=== PATIENT | male | born 1975 | race Caucasian/White ===

== ENCOUNTER 2017-07-15 08:31 | Inpatient (IN) | payer BC, OTHER ==
[~2017-07-15] VITALS: Ht 195.6 cm; Wt 93.0 kg
--- NOTE | 2017-07-15 22:40 | NUR ---
PRE-ADMISSION NOTE: Patient assessed in intake office at 22:40 on 07/15/2017. Patient is ambulatory with steady gate, stable, AOx4, speech is clear. Patient states that he is here, in the [facility] "first time for Safety Detox from Alcohol". Patient states that he last used Alcohol: 12 beers x 11 oz on "07/15/2017 at 1900". Patient reports that used Alcohol " every other day: 12 beer x 11 oz and /or Vodka 750 ml last two years". Patient also reports that he was 14 years sober from 2000 to 2014" . Patient's CIWA 7. The patient reported the following symptoms of withdrawal: anxiety, agitation, nervousness, diaphoresis, insomnia, restlessness, and fatigue. Patient denies SI/HI. Breathing is even and unlabored. Patient denies SOB and chest pain. Last BM was "07/15/17 at 19:00". VS: T: 98'3; BP: 135/88; HR: 80; RR: 19; O2 SAT: 100%. Patient denies pain now: "0/10". Patient reports Allergy to Bee. Patient placed on Full Code, Regular Diet, Fall and Seizures Precautions. Patient denies History of Seizures. Patient instructed on unit protocol of vitals Q4H and COWS/CIWA assessments. Patient verbalized understanding and agreement. Patient also instructed on policy regarding destruction of any controlled substances/prescriptions brought to facility, and handling of all medications. Patient verbalized understanding and agreement. Will complete admission assessment when patient is brought up to unit.
[2017-07-15 22:55] VITALS: BP 135/88
--- NOTE | 2017-07-15 22:55 | NUR ---
ADMISSION NOTE New patient is a 42-year-old male admitted to [facility] on 07/15/2017 at 2255 for medically supervised from Alcohol withdrawal. Patient reports Allergy to Bee. Patient placed on Full Code, Regular Diet, Fall and Seizures Precautions. Patient denies Seizures History. PCP: MD Shahzad. Pre-assessment completed in intake. Patient provided UDS test at this time. Patient is ambulatory with steady gate, stable, A&Ox4, speech is clear. VS upon admission: VS: T: 98'3; BP: 135/88; HR: 80; RR: 19; O2 SAT: 100%. Patient denies pain now: "0/10". Patient reports Allergy to Bee. Patient placed on Full Code, Regular Diet, Fall and Seizures Precautions. Patient denies History of Seizures. Patient is cooperative, friendly, and verbally appropriate. Patient reports the following substances use: 1."Alcohol since 1997. Sober from 2000 to 2014. Patient reports that used Alcohol " every other day: 12 beer x 11 oz and /or Vodka 750 ml last two years. Last use 12 beers x 11 oz on "07/15/2017 at 1900". 2. Tobacco smoking "2-3 cigars every day since 2000". Written smoking cessation education provided.. Patient verbalized understanding. Patient reports that longest period of sobriety was from 2000 to 2014. Patient denies current SI/HI. Past Medical History: Alcohol Abuse, Chronic tobacco use. Patient did not bring Home Medications. Upon initial assessment, patient's Respirations unlabored and even. Patient denies SOB and chest pain. Lungs Sounds are clear bilaterally. Bowel Sounds active in all x4 quadrants. Abdomen is soft and non-tender. PERRLA, brisk capillary refill, city manager equal and strong. Skin is intact, warm and dry to touch. Patient oriented to his room, Nurse Call Light, and Serenity Floor. Encourage fluids as tolerated. Encourage to attend activities groups. All needs met. Safety measures on place. Call light within reach, bed in lowest position and locked, padded rails up bilaterally rails up bilaterally. Patient admitted under the care Andrae Mac MD. Doctor Andrae Neumann MD aware for patient condition. Will continue to monitor closely.
[2017-07-15] MEDS ORDERED: ONDANSETRON ODT 4 MG TAB.RAPDIS SL PRN (23:15)
[2017-07-15] MEDS ORDERED: MIRALAX 17 GM POWD.PACK PO PRN (23:15)
[2017-07-15] MEDS ORDERED: ONDANSETRON 4 MG/2 ML VIAL IM PRN (23:15)
[2017-07-15] MEDS ORDERED: LORAZEPAM 2 MG/1 ML VIAL IM PRN (23:15)
[2017-07-15] MEDS ORDERED: DICYCLOMINE HCL 20 MG TABLET PO PRN (23:15)
[2017-07-15] MEDS ORDERED: IBUPROFEN 400 MG TABLET PO PRN (23:15)
[2017-07-15] MEDS ORDERED: LORAZEPAM 1 MG TABLET PO PRN ×2 (23:15)
[2017-07-15] MEDS ORDERED: MAG HYDROX/AL HYDROX/SIMETH 30 ML LIQUID UDC PO PRN (23:15)
[2017-07-15] MEDS ORDERED: HYDROXYZINE PAMOATE 25 MG CAPSULE PO PRN (23:15)
[2017-07-15] MEDS ORDERED: CLONIDINE HCL 0.1 MG TABLET PO PRN (23:15)
[2017-07-15] MEDS ORDERED: THIAMINE HCL 200 MG/2 ML VIAL IM ONE (23:15)
[2017-07-15] MEDS ORDERED: LOPERAMIDE HCL 2 MG CAPSULE PO PRN ×2 (23:15)
[2017-07-15] MEDS ORDERED: MAGNESIUM HYDROXIDE 30 ML LIQUID UDC PO PRN (23:15)
[2017-07-15 23:37] LABS: BASOPHILS % (AUTO) 0.5 % (0.0-2.0); EOSINOPHILS # (AUTO) 0.3 K/uL (0.0-0.7); EOSINOPHILS % (AUTO) 3.2 % (0.0-7.0); HEMOGLOBIN 16.3 G/DL (14.0-18.0); LYMPHOCYTES # (AUTO) 2.9 K/UL (0.8-4.8); LYMPHOCYTES % (AUTO) 34.1 % (20.5-51.5); MEAN CORPUSCULAR HEMOGLOBIN 29.5 UUG (27.0-31.0); MEAN CORPUSCULAR HGB CONC 33 g/dL (32.0-37.0); MEAN CORPUSCULAR VOLUME 88.5 FL (82.0-92.0); MONOCYTES # (AUTO) 0.7 K/UL (0.1-1.30); MONOCYTES % (AUTO) 8.5 % (0.0-11.0); NEUTROPHILS # (AUTO) 4.7 K/UL (1.8-8.9); NEUTROPHILS % (AUTO) 53.7 % (38.5-71.5); PLATELET COUNT (AUTO) 250 K/UL (150-450); RED BLOOD CELL COUNT(AUTO) 5.53 MIL/UL (4.7-6.1); WHITE BLOOD COUNT (AUTO) 8.6 K/UL (4.0-11.2)
[2017-07-15 23:52] LABS: BILIRUBIN,TOTAL 0.3 mg/dL (0.2-1.0); CREATININE 1.1 mg/dL (0.6-1.3); MAGNESIUM 2.2 mg/dL (1.8-2.4); TOTAL PROTEIN, SERUM 8.3 g/dL (6.4-8.2)
[2017-07-16] VITALS: BP 134/93
[2017-07-16] LABS: THYROID STIMULATING HORMONE 1.979 mIU/mL (0.358-3.740)
[2017-07-16] MEDS: ACETAMINOPHEN 325 MG TABLET PO PRN ×2 (00:34→20:53)
[2017-07-16] MEDS: diphenhydrAMINE 50 MG CAPSULE PO PRN ×2 (00:34→20:53)
--- NOTE | 2017-07-16 00:34 | NUR ---
PRN TYLENOL 650 MG 2 TAB PO ADMINISTRATION. Patient c/o generalized body aches "7/10"and asked aid. PRN Tylenol 650 mg 2 tab PO administrated full glass of water as ordered. Patient tolerated well. All needs met. Safety measures on place. Call light within reach, bed in lowest position and locked, padded rails up bilaterally rails up bilaterally. Will continue to monitor closely.
--- NOTE | 2017-07-16 00:34 | NUR ---
PRN BENADRYL 50 MG 1 CAP PO AND PRN MAALOX SUSPENSION 30 ML PO ADMINISTRATION. Patient c/o insomnia and heartburn. PRN Benadryl 50 mg 1 cap PO and PRN Maalox Suspension 30 ml PO administrated with full glass of water as ordered. Patient tolerated well. All needs met. Safety measures on place. Call light within reach, bed in lowest position and locked, padded rails up bilaterally rails up bilaterally. Will continue to monitor closely.
[2017-07-16] MEDS ORDERED: ACETAMINOPHEN 325 MG TABLET ONE (00:43)
[2017-07-16] MEDS ORDERED: MAG HYDROX/AL HYDROX/SIMETH 30 ML LIQUID UDC ONE (00:43)
[2017-07-16] MEDS ORDERED: diphenhydrAMINE 50 MG CAPSULE ONE (00:43)
[2017-07-16] MEDS ORDERED: THIAMINE HCL 200 MG/2 ML VIAL ONE (00:52)
--- NOTE | 2017-07-16 01:34 | NUR ---
RE-ASSESSMENT Patient is sleeping. Respirations even and unlabored. RR:15. PRN Benadryl PO and PRN Maalox Suspension PO were effective. All needs met. Safety measures on place. Call light within reach, bed in lowest position and locked, padded rails up bilaterally rails up bilaterally. Will continue to monitor closely.
--- NOTE | 2017-07-16 01:34 | NUR ---
RE-ASSESSMENT Patient is sleeping. Respirations even and unlabored. RR:15. PRN Tylenol PO was effective. All needs met. Safety measures on place. Call light within reach, bed in lowest position and locked, padded rails up bilaterally rails up bilaterally. Will continue to monitor closely.
[2017-07-16 04:00] VITALS: BP 120/72
[2017-07-16 04:14] LABS: *AMPHETAMINE, URINE NEGATIVE (NEGATIVE); *BARBITURATE, URINE NEGATIVE (NEGATIVE); *CANNABINOID, URINE NEGATIVE (NEGATIVE); *COCCAINE, URINE NEGATIVE (NEGATIVE); *OPIATE, URINE NEGATIVE (NEGATIVE); *PHENCYCLIDINE SCREEN,URINE NEGATIVE (NEGATIVE)
--- NOTE | 2017-07-16 06:56 | NUR ---
END OF SHIFT NOTE: Patient endorsed to day shift nurse. Report given. Patient is a 42-year-old male admitted to [facility] on 07/15/2017 at 2255 for medically supervised from Alcohol withdrawal. Patient admitted under the care doctor Andrae Neumann MD. Patient reports Allergy to Bee. Patient is Full Code, Regular Diet, is Fall and Seizures Precautions. Patients denies Seizures Hx r/t withdrawal from substances. Patient is cooperative, friendly, and verbally appropriate. Patient reports the following substances use: 1."Alcohol since 1997. Sober from 2000 to 2014. Patient reports that used " every other day: 12 beer x 11 oz and /or Vodka 750 ml last two years. Last use 12 beers x 11 oz on "07/15/2017 at 1900". 2. Tobacco smoking "2-3 cigars every day since 2000". Written smoking cessation education provided. Patient verbalized understanding. Patient reports that longest period of sobriety was from 2000 to 2014. Patient denies current SI/HI. Past Medical History: Alcohol Abuse, Chronic tobacco use. Patient did not bring Home Medications. VS at 0400: VS: T: 98'1; BP: 120/72; HR: 62; RR: 14; O2 SAT: 96%. Patient denies pain now: "0/10". Respirations unlabored and even. Patient denies SOB and chest pain. Lungs Sounds are clear bilaterally. Bowel Sounds active in all x4 quadrants. Abdomen is soft and non-tender. PERRLA, brisk capillary refill, steamfitter equal and strong. Skin is intact, warm and dry to touch. Last CIWA 3 at 0400. During my shift patient presented with anxiety, agitation, nervousness, barely sweating, and restlessness. Respirations unlabored and even. Patient denies SOB, cough, and chest pain. Patient denies SI/HI. Skin is intact, warm, and dry to touch. PRN Benadryl PO, PRN Maalox Suspension PO, and PRN Tylenol PO administrated to patient last night were effective. Patient remains compliant with medications. Patient slept 4 hours, intake 1035 ml, voided x2. Encourage fluids as tolerated. Encourage to attend activities groups. All needs met. Safety measures on place. Call light within reach, bed in lowest position and locked, padded rails up bilaterally rails up bilaterally.
--- NOTE | 2017-07-16 07:30 | NUR ---
Start of Shift Chaplain Resident received report on 42 year old male admitted on 07/15/17 for ETOH detoxification. Pt is a full code, regular diet and has an allergy to Bee Pollen. Pt denies PMH. Denies history of seizures. Pt no currently on a taper. Last CIWA 3 at 0400. PRN Tylenol and Benadryl provided by date night sitter. Pt had been sober 14 years, relapsed 2 years ago. Chaplain Resident encountered pt resting in bed with eyes closed. Respirations are even and unlabored with rise and fall of chest noted. Bed in low position, wheels locked, side rails up x2 and call light within reach.
[2017-07-16 08:50] VITALS: BP 134/87
[2017-07-16] MEDS ORDERED: TUBERCULIN,PURIF.PROT.DERIV. 5 TU/0.1 ML TEST ID ONE (09:00)
[2017-07-16] MEDS: THIAMINE HCL 100 MG TABLET PO SCH (09:47)
[2017-07-16] MEDS: FOLIC ACID 1 MG TABLET PO SCH (09:47)
[2017-07-16] MEDS: MULTIVITAMINS,THERAPEUTIC TABLET PO SCH (09:47)
--- NOTE | 2017-07-16 09:47 | NUR ---
PRN Ativan Pt complain of mild detox symptoms to include, slight tremors, nausea, headache and general malaise. Direct Mail Marketer administered medication per MD order. Will continue to monitor, support and encourage according to plan of care.
--- NOTE | 2017-07-16 10:47 | NUR ---
PRN Re-assessment Pt is endorsing some relief in symptoms. Will continue to monitor, support and encourage according to plan of care.
[2017-07-16 12:30] VITALS: BP 130/84
[2017-07-16] MEDS: LORAZEPAM 1 MG TABLET PO SCH ×3 (12:59→20:52)
[2017-07-16 16:39] VITALS: BP 126/93
--- NOTE | 2017-07-16 18:48 | NUR ---
End of Shift Compensation Supervisor provided report on 42 year old male admitted on 07/15/17 for ETOH detoxification, with no further comments, questions or concerns voiced. Pt is a full code, regular diet and has an allergy to Bee Pollen. Pt denies PMH. Denies history of seizures. Pt started on Ativan taper, tolerating well. . Last CIWA 6 at 1600. Pt has been calm and cooperative, makes his needs known. A/O x4. Bed in low position, wheels locked, side rails up x2 and call light within reach.
--- NOTE | 2017-07-16 18:48 | NUR ---
START OF SHIFT NOTE: Patient endorsed BY day shift nurse. Report received. Patient is a 42-year-old male admitted to [facility] on 07/15/2017 for medically supervised from Alcohol withdrawal. Patient reports Allergy to Bee. Patient is Full Code, Regular Diet, is Fall and Seizures Precautions. Patients denies Seizures Hx r/t withdrawal from substances. Upon endorsement, patient is in his room, alert and oriented x4, speech is soft and clear. Patient is cooperative, friendly, and verbally appropriate. Patient denies current SI/HI. VS: T: 97.7; BP: 129/90; HR: 66; RR: 18; O2 SAT: 96%. Patient c/o "generalized body aches 8/10". Respirations unlabored and even. Patient denies SOB and chest pain. Lungs Sounds are clear bilaterally. Bowel Sounds active in all x4 quadrants. Abdomen is soft and non-tender. PERRLA, brisk capillary refill, saddle and harness maker equal and strong. Skin is intact, warm and dry to touch CIWA 7. Patient presented with anxiety, agitation, nervousness, barely sweating, generalized body aches,and restlessness. Respirations unlabored and even. Patient denies SOB, cough, and chest pain. Patient denies SI/HI. Skin is intact, warm, and dry to touch. Patient remains compliant with medications. Encourage fluids as tolerated. Encourage to attend activities groups. All needs met. Safety measures on place. Call light within reach, bed in lowest position and locked, padded rails up bilaterally rails up bilaterally.
[2017-07-16 20:00] VITALS: BP 129/90
--- NOTE | 2017-07-16 20:53 | NUR ---
PRN TYLENOL 650 MG 2 TAB PO AND PRN BENADRYL 50 MG 1 CAP PO ADMINISTRATION. Patient c/o insomnia and generalized body aches "8/10"and asked aid. PRN Benadryl 50 mg 1 cap PO and PRN Tylenol 650 mg 2 tab PO administrated full glass of water as ordered. Patient tolerated well. All needs met. Safety measures on place. Call light within reach, bed in lowest position and locked, padded rails up bilaterally rails up bilaterally. Will continue to monitor closely.
--- NOTE | 2017-07-16 21:53 | NUR ---
RE-ASSESSMENT Patient is sleeping. Respirations even and unlabored. RR:15. PRN Benadryl PO and PRN Tylenol PO were effective. All needs met. Safety measures on place. Call light within reach, bed in lowest position and locked, padded rails up bilaterally rails up bilaterally. Will continue to monitor closely.
[2017-07-17] VITALS: BP 125/89
[2017-07-17 04:00] VITALS: BP 121/81
--- NOTE | 2017-07-17 07:03 | NUR ---
END OF SHIFT NOTE: Patient endorsed to day shift nurse. Report given. Patient is a 42-year-old male admitted to [facility] on 07/15/2017 for medically supervised from Alcohol withdrawal. Patient admitted under the care doctor Andrae Neumann MD. Patient reports Allergy to Bee. Patient is Full Code, Regular Diet, is Fall and Seizures Precautions. Patients denies Seizures Hx r/t withdrawal from substances. Patient is cooperative, friendly, and verbally appropriate. Patient denies current SI/HI. Last VS at 0400: T: 97.8; BP: 121/81; HR: 61; RR: 14; RA O2 SAT: 97%. Patient denies pain now: "0/10". Respirations unlabored and even. Patient denies SOB and chest pain. Skin is intact, warm and dry to touch. Last CIWA 3 at 0400. During my shift patient presented with anxiety, agitation, nervousness, barely sweating, and restlessness. Respirations unlabored and even. Patient denies SOB, cough, and chest pain. Patient denies SI/HI. Skin is intact, warm, and dry to touch. PRN Benadryl PO and PRN Tylenol PO administrated to patient last night were effective. Patient remains compliant with medications. Patient slept 10 hours, intake 800 ml, voided x2. Encourage fluids as tolerated. Encourage to attend activities groups. All needs met. Safety measures on place. Call light within reach, bed in lowest position and locked, padded rails up bilaterally rails up bilaterally.
--- NOTE | 2017-07-17 07:04 | NUR ---
Start of Shift Notes: Received patient in his room. Awake, alert and verbally responsive. Oriented x 4. Able to make needs known. Affect flat. Respirations even and unlabored. No SOB noted. Skin warm and dry to touch. Abdomen soft and non-distended with (+) BS in all 4 quadrants. No complains of N/V/D or constipation noted. Bladder non-distended. Voids independently. Denies dysuria. Ambulatory ad daniel with steady gait. Patient is a 42 year old male admitted for ETOH dependence who was placed on a 5-day Ativan taper as ordered. No adverse reactions noted. Denies any past medical hx. Allergic to bee pollen. FULL CODE. Regular diet. On fall and seizure precautions. Educated patient on his current plan of care for the day and his medication regimen. Encouraged support, oral fluid intake and group participation to learn new skills to prevent relapse. Safety precautions in place. Call light kept in reach. Will continue to monitor during the day.
[2017-07-17 08:00] VITALS: BP 122/91
[2017-07-17] MEDS: MULTIVITAMINS,THERAPEUTIC TABLET PO SCH (08:21)
[2017-07-17] MEDS: THIAMINE HCL 100 MG TABLET PO SCH (08:21)
[2017-07-17] MEDS: LORAZEPAM 1 MG TABLET PO SCH ×3 (08:21→20:20)
[2017-07-17] MEDS: FOLIC ACID 1 MG TABLET PO SCH (08:21)
--- NOTE | 2017-07-17 08:21 | NUR ---
Motrin 400 mg PO given: Patient noted with complain of 7/10 generalized pain. Non-pharmacological interventions provided but ineffective. Medicated patient with Motrin 400 mg PO as ordered. Will monitor for effectiveness.
--- NOTE | 2017-07-17 09:10 | NUR ---
Assume Care Meat Sales And Storage Manager assumes care of 42 year old male admitted on 07/15/17 for ETOH detoxification. Pt is a full code, regular diet and has an allergy to Bee Pollen. Pt denies PMH. Denies history of seizures. Pt currently on a 5 day Ativan taper, tolerating well. Bed in low position, wheels locked, side rails up x2 and call light within reach.
--- NOTE | 2017-07-17 09:21 | NUR ---
PRN Re-assessment Pt states, " feeling better." Noted to be resting in bed. Will continue to monitor, support and encourage according to plan of care.
[2017-07-17 10:11] LABS: HEPATITIS B SURFACE AG Negative (Negative)
[2017-07-17 12:52] VITALS: BP 130/88
[2017-07-17 16:40] VITALS: BP 136/95
--- NOTE | 2017-07-17 19:09 | NUR ---
End of Shift Roof Tile Layer provides reports on 42 year old male admitted on 07/15/17 for ETOH detoxification, with no further comments, questions or concerns voiced. Pt is a full code, regular diet and has an allergy to Bee Pollen. Pt denies PMH. Denies history of seizures. Pt currently on a 5 day Ativan taper, tolerating well. Pt is A/O x4 calm, cooperative and pleasant, makes needs known. No PRN administered this shift. Bed in low position, wheels locked, side rails up x2 and call light within reach.
--- NOTE | 2017-07-17 19:10 | NUR ---
Start of shift note Received report from day shift nurse. Pt is a 42 yo male, A+Ox4, presenting to [facility] for ETOH dependence. Pt has Allergies to Bee pollen, is on Full Code status, and on Regular diet. Pt is on Fall and Seizure precautions. Pt has no medical HX to report. Pt is on 5 day Ativan taper, tolerated well. No s/s of distress noted at this time. Respirations even and unlabored. Will continue to monitor.
[2017-07-17 20:25] VITALS: BP 136/81
[2017-07-18 00:17] VITALS: BP 129/76
[2017-07-18 04:17] VITALS: BP 124/74
--- NOTE | 2017-07-18 06:59 | NUR ---
End of shift note Pt is a 42 yo male, A+Ox4, presenting to [facility] for ETOH dependence. Pt has Allergies to Bee pollen, is on Full Code status, and on Regular diet. Pt is on Fall and Seizure precautions. Pt has no medical HX to report. Pt is on 5 day Ativan taper, tolerated well. Pt slept for a total of 7 HRS. Last CIWA: 3 @0400. No s/s of distress noted at this time. Respirations even and unlabored. Will endorse to day shift nurse.
--- NOTE | 2017-07-18 07:00 | NUR ---
Start of Shift Endorsement received from nightshift nurse. Pt is a 42 y/o male admitted for alcohol dependence. PT has been placed on a 5 day Ativan taper. Pt is tolerating the taper well AEB CIWA 3. Pt did not receive any PRN medications. PT reports sleeping 7 hours. Full Code. VS WNL. PT is alert and oriented x4. Pt is in STABLE condition at this time. Remains compliant with medication and diet regimen. All needs have been met, All safety measures in place per hospital policy. Bed in lowest position, side rails up x2, call-light within reach. Will continue to monitor
[2017-07-18 08:00] VITALS: BP 118/80
[2017-07-18] MEDS: THIAMINE HCL 100 MG TABLET PO SCH (09:07)
[2017-07-18] MEDS: LORAZEPAM 1 MG TABLET PO SCH ×4 (09:07→21:00)
[2017-07-18] MEDS: MULTIVITAMINS,THERAPEUTIC TABLET PO SCH (09:07)
[2017-07-18] MEDS: FOLIC ACID 1 MG TABLET PO SCH (09:07)
[2017-07-18 12:00] VITALS: BP 120/75
--- NOTE | 2017-07-18 14:25 | NUR ---
Therapist prompted client about group times. Client stated he would attend all groups today.
[2017-07-18 16:00] VITALS: BP 135/80
--- NOTE | 2017-07-18 18:50 | NUR ---
End of Shift Endorsement received from nightshift nurse. Pt is a 42 y/o male admitted for alcohol dependence. PT has been placed on a 5 day Ativan taper. Pt is tolerating the taper well AEB CIWA 2 at 1600. Pt did not receive any PRN medications. Pt refused 1300 and 1700 Ativan. Pt reports not needing any Ativan. Dr. Hernández has been notified of the pt's refusal to take any medications. PT will be continued to be monitored for withdrawal symptoms. Pt has been educated of withdrawal symptoms. Encouraged pt to drink more fluids. Encouraged pt to participate in groups and activities. Intake: 2355ml, Void x2, BM x1. Full Code. VS WNL. PT is alert and oriented x4. Pt is in STABLE condition at this time. Remains compliant with medication and diet regimen. All needs have been met, All safety measures in place per hospital policy. Bed in lowest position, side rails up x2, call-light within reach. Will continue to monitor
--- NOTE | 2017-07-18 19:08 | NUR ---
Start of shift note Received report from day shift nurse. Pt is a 42 yo male, A+Ox4, presenting to [facility] for ETOH dependence. Pt has Allergies to Bee pollen, is on Full Code status, and on Regular diet. Pt is on Fall and Seizure precautions. Pt has no medical HX to report. Pt is on 5 day Ativan taper, tolerated well. No s/s of distress noted at this time. Respirations even and unlabored. Will continue to monitor.
[2017-07-18 20:52] VITALS: BP 129/89
[2017-07-19 00:47] VITALS: BP 124/83
[2017-07-19 04:21] VITALS: BP 118/78
--- NOTE | 2017-07-19 07:00 | NUR ---
End of shift note Pt is a 42 yo male, A+Ox4, presenting to [facility] for ETOH dependence. Pt has Allergies to Bee pollen, is on Full Code status, and on Regular diet. Pt is on Fall and Seizure precautions. Pt has no medical HX to report. Pt is on 5 day Ativan taper, tolerated well. Pt slept for a total of 7 HRS. Last CIWA: 1 @0400. No s/s of distress noted at this time. Respirations even and unlabored. Will endorse to day shift nurse.
--- NOTE | 2017-07-19 07:55 | NUR ---
START OF SHIFT Rcvd endorsement from ongoing nurse, client is in room, he is a/o x4, he presents with anxious mood, flat affect, he reports feeling better and would like to speak with the doctor for an early discharge. He reports stomach cramps, restless legs and fatigue. Client denies any N/V/D or SI/HI. Encouraged client to increase fluid intake to facilitate detox. Encourage client to attend group therapy for skills to maintain sobriety. Client is a 42 yo male admitted for withdrawal from alcohol. He is on a modified 4 day Ativan taper, client refused last dose. Last COWS 1 @ 0400. He reports allergy to bee pollen, full code, regular diet. Client had an uneventful night, he slept 7 hrs. Client denies any history of withdrawal-induced seizure. He is on seizure precautions. Call light within reach. Side rails up x2/padded, bed locked and in low position.
[2017-07-19 08:55] VITALS: BP 134/83
[2017-07-19] MEDS ORDERED: LORAZEPAM 1 MG TABLET PO SCH ×2 (09:00)
[2017-07-19] MEDS: THIAMINE HCL 100 MG TABLET PO SCH (09:05)
[2017-07-19] MEDS: FOLIC ACID 1 MG TABLET PO SCH (09:05)
[2017-07-19] MEDS: MULTIVITAMINS,THERAPEUTIC TABLET PO SCH (09:05)
[2017-07-19 12:50] VITALS: BP 139/83
[2017-07-19] MEDS ORDERED: DIPH50CA37 PO (15:57)
[2017-07-19] MEDS ORDERED: MULT-24 PO (15:57)
[2017-07-19] MEDS ORDERED: FOLI1TAB16 PO (15:57)
[2017-07-19] MEDS ORDERED: THIA100T13 PO (15:57)
[2017-07-19] MEDS ORDERED: HYDR-3895 PO (15:57)
[2017-07-19 16:00] VITALS: BP 141/100
--- NOTE | 2017-07-19 18:00 | NUR ---
CIWA score 1. Patient attended group at 1600 and then went to dinner at 1700 in cafeteria. Anxious to go home tomorrow. Denies pain. Vital signs stable.
--- NOTE | 2017-07-19 19:05 | NUR ---
Start of Shift Patient Received. Patient is in his room in bed, awake, alert and verbally responsive. Breathing even and non labored. No signs of pain or discomfort noted. Patient is a 42 year old male admitted on 07/15/17 for ETOH Dependence. Patient received a 4 day modified Ativan taper. Patient verbalizes allergies to Bee Pollen, wishes to be full code, following a regular diet, placed on fall and seizure precautions, and skin noted intact. No past medical history noted. Patient is discharging tomorrow 07/20/17. No PRN medications administered. All needs attended to promptly. Will continue plan of care as ordered.
--- NOTE | 2017-07-19 19:30 | NUR ---
END OF SHIFT Client is a 42 yo male admitted for withdrawal from alcohol. He completed a modified 4 day Ativan taper, he is schedule for discharge tomorrow. Last COWS 1 @ 0400. He reports allergy to bee pollen, full code, regular diet. Client had an uneventful day, he is compliant with group therapy.. Client denies any history of withdrawal-induced seizure. He is on seizure precautions. Call light within reach. Side rails up x2/padded, bed locked and in low position.
[2017-07-19 20:30] VITALS: BP 129/87
[2017-07-20 00:15] VITALS: BP 122/74
[2017-07-20 04:52] VITALS: BP 123/80
--- NOTE | 2017-07-20 07:05 | NUR ---
End of Shift Patient is noted in bed sleeping but easily aroused to verbal stimuli. Breathing even and non labored. No signs of pain or discomfort noted. Patient is a 25 year old female admitted on 07/13/17 for ETOH Dependence and received a 5 day Valium taper. Patient verbalizes no known allergies, wishes to be full code, placed on fall and seizure precautions. Past medical history of anxiety, depression, and bipolar, with history of seizure noted in march 2016. Patient was given PRN Robaxin for increased body aches. Discharge orders continue for today 07/20/17. All needs attended to promptly. Will endorse to continue plan of care as ordered.
--- NOTE | 2017-07-20 07:54 | NUR ---
START OF SHIFT Rcvd endorsement from ongoing nurse, client is in room, he is a/o x4, he presents with anxious mood d/t discharge plan for this am, he reports not sleeping well and restless legs. Client denies any N/V/D or SI/HI. Review discharge plan, client verbalized understanding. Client is a 42 yo male admitted for withdrawal from alcohol. He completed a modified 4 day Ativan taper, client tolerated well. Last CIWA 1 @ 0400. He reports allergy to bee pollen, full code, regular diet. Client had an uneventful night, he slept 6 hrs. Client denies any history of withdrawal-induced seizure. He is on seizure precautions. Call light within reach. Side rails up x2/padded, bed locked and in low position.
[2017-07-20 08:15] VITALS: BP 133/92
[2017-07-20] MEDS: THIAMINE HCL 100 MG TABLET PO SCH (08:26)
[2017-07-20] MEDS: MULTIVITAMINS,THERAPEUTIC TABLET PO SCH (08:26)
[2017-07-20] MEDS: FOLIC ACID 1 MG TABLET PO SCH (08:27)
[2017-07-20] MEDS ORDERED: LORAZEPAM 1 MG TABLET PO SCH (09:00)
--- NOTE | 2017-07-20 09:45 | NUR ---
Discharge note Client was admitted for alcohol withdrawal. Client has a recent CIWA of 1. Client VS are WNL. Client LBM was 07/20/17. Client denies any SI/HI. Client verbalized his understanding of the discharge instructions. Client has no complaints at this time. Client discharge instructions, prescriptions, and all belongings returned to client. All needs addressed at this time. Client ID band removed, het ambulated off of unit, client left facility via Private car with girlfriend Maryanne Cox to home.
== END 2017-07-20 09:45 | disposition home or self-care (01) | DRG 895 ==
LOC: SRC 22:11
PROVIDERS: ADMIT Internal Medicine; ATTEND Internal Medicine
PROC: HZ2ZZZZ Detoxification Services for Substance Abuse Treatment (ICD-10-PCS; principal; 2017-07-15)
PROC: HZ41ZZZ Group Counseling for Substance Abuse Treatment, Behavioral (ICD-10-PCS; 2017-07-16)
PROC: HZ31ZZZ Individual Counseling for Substance Abuse Treatment, Behavioral (ICD-10-PCS; 2017-07-18)
DX: F10.232 Alcohol dependence with withdrawal with perceptual disturbance (principal); E78.5 Hyperlipidemia, unspecified; Z82.49 Family history of ischemic heart disease and other diseases of the circulatory system; Z83.3 Family history of diabetes mellitus; Y90.9 Presence of alcohol in blood, level not specified; Z81.1 Family history of alcohol abuse and dependence; F17.200 Nicotine dependence, unspecified, uncomplicated
CPT/HCPCS: 36415; 70030-TC; 80307; 83690; 83735; 84443; 85025; 86580; 86592; 86705; 86803; 87340; 87806; G0480; J3411; Q0163